=== PATIENT | female | born 1985 | race Caucasian/White ===

== ENCOUNTER → 2023-08-15 | Outpatient (CLI) | payer BC ==
--- NOTE | 2023-08-22 09:30 | MM ---
Reason for Exam: Screening (asymptomatic). Last mammogram was performed 2 year(s) and 8 month(s) ago. Patient History: Menarche at age 12. Patient has no children. Mother had breast cancer at or over age 50. Last menstrual period: 08/14/2023 Risk Values: Tania 5 year model risk: 0.9%. NCI Lifetime model risk: 17.4%. Prior Study Comparison: 03/19/2020 Bilateral Diagnostic Mammogram, [facility]y . 12/10/2020 Bilateral Diagnostic Mammogram, Bernard Cartagenamandy Handy . Tissue Density: The breasts are extremely dense, which lowers the sensitivity of mammography. Findings: Analyzed By CAD. There is no suspicious group of microcalcifications or new suspicious mass in either breast. Benign-appearing calcifications. Overall Assessment: Benign, BI-RAD 2 Management: Screening Mammogram of both breasts in 1 year. . Patient should continue monthly self-breast exams. A clinical breast exam by your physician is recommended on an annual basis. This exam should not preclude additional follow-up of suspicious palpable abnormalities. Note on Tania scores and lifetime risk: 1. A Tania score greater than 3% is considered moderate risk. If this is the case, consider specialist referral to assess eligibility for a risk reducing agent. 2. If overall lifetime risk for the development of breast cancer is 20% or higher, the patient may qualify for future screening with alternating mammogram and breast MRI. Electronically signed and approved by: Hector Morales M.D. Radiologis
== END | disposition home or self-care (01) ==
LOC: RADMAMWWP 07:09
PROVIDERS: ATTEND Obstetrics & Gynecology
DX: Z12.31 Encounter for screening mammogram for malignant neoplasm of breast (principal); Z80.3 Family history of malignant neoplasm of breast
CPT/HCPCS: 77063; 77067

== ENCOUNTER → 2024-10-14 | Outpatient (CLI) | payer BC ==
--- NOTE | 2024-10-14 08:04 | MM ---
Reason for Exam: Clinical finding. Last mammogram was performed 1 year(s) and 2 month(s) ago. Indicated Problems: Lump or thickening of both sides. Patient History: Menarche at age 12. Patient has no children. Mother had breast cancer at or over age 50. Last menstrual period: 09/28/2024 Risk Values: Tania 5 year model risk: 1.0%. NCI Lifetime model risk: 17.3%. Prior Study Comparison: 03/19/2020 Bilateral Diagnostic Mammogram, Bernard Roeomb . 12/10/2020 Bilateral Diagnostic Mammogram, Bernard Handy . 08/15/2023 Bilateral MG 3D screening mammo w/cad, [facility]. Tissue Density: The breasts are extremely dense, which lowers the sensitivity of mammography. Findings: Analyzed By CAD. No new suspicious masses, calcifications or distortions. Overall Assessment: Incomplete: need additional imaging evaluation, BI-RAD 0 Management: Diagnostic Breast Ultrasound of both breasts. Results were given to the patient verbally at the time of exam. Patient should continue monthly self-breast exams. A clinical breast exam by your physician is recommended on an annual basis. This exam should not preclude additional follow-up of suspicious palpable abnormalities. Note on Tania scores and lifetime risk: 1. A Tania score greater than 3% is considered moderate risk. If this is the case, consider specialist referral to assess eligibility for a risk reducing agent. 2. If overall lifetime risk for the development of breast cancer is 20% or higher, the patient may qualify for future screening with alternating mammogram and breast MRI. [facility], , 10/14/2024 8:01 AM. Electronically signed and approved by: Pacheco Day DO
--- NOTE | 2024-10-14 08:40 | USB ---
Patient History: Menarche at age 12. Patient has no children. Mother had breast cancer at or over age 50. Risk Values: Tania 5 year model risk: 1.0%. NCI Lifetime model risk: 17.3%. Technique: Method: Targeted. Prior Study Comparison: 03/19/2020 Bilateral Diagnostic Mammogram, Bernard Handy . 12/10/2020 Bilateral Diagnostic Mammogram, Bernard Handy . 08/15/2023 Bilateral MG 3D screening mammo w/cad, [facility]. Findings: The upper outer quadrant of both breasts, the axilla of both breasts and the retroareolar of both breasts were scanned. Technique utilized:US breast limited BILAT Image; Ultrasound imaging of: Upper-outer quadrants bilaterally, retroareolar region and axilla. Right: 10:00 7 cm nipple measuring up to 12 x 5 x 11 mm this has a bilobed appearance. 12:00 2 cm from the nipple cyst measuring 6 x 5 x 7 mm. Left breast: 1:00 6 cm nipple cyst measuring 5 x 4 x 7 mm. 3:00 9 cm nipple measuring 11 x 4 x 7 mm. Negative bilateral axilla. Overall Assessment: Benign, BI-RAD 2 Management: Screening Mammogram of both breasts in 1 year. A clinical breast exam by your physician is recommended on an annual basis and results should be correlated with mammographic findings. This exam should not preclude additional follow-up of suspicious palpable abnormalities. Results were given to the patient verbally at the time of exam. [facility], , 10/14/2024 8:37 AM. Electronically signed and approved by: Pacheco Day DO
== END | disposition home or self-care (01) ==
LOC: RADMAMWWP 07:25
PROVIDERS: ATTEND Obstetrics & Gynecology
DX: R92.343 Mammographic extreme density, bilateral breasts (principal); N60.01 Solitary cyst of right breast; N60.02 Solitary cyst of left breast; Z80.3 Family history of malignant neoplasm of breast
CPT/HCPCS: 77062; 77066